=== PATIENT | female | born 1930 | race Caucasian/White ===

== ENCOUNTER → 2016-08-16 | Outpatient (CLI) | payer OTHER ==
--- NOTE | 2016-08-16 12:07 | DX ---
Left wrist series 4 views Right hand series 3 views History: Pain without trauma. Evaluate for arthritis. Findings: Left wrist: There is mild to moderate joint space narrowing with mild subluxation left first carpal m etacarpal joint. The remainder the joint spaces appear to be normal. There are no fractures or abnorm al lytic or sclerotic osseous lesions. Soft tissues are unremarkable. Right hand series: There is mild joint space narrowing at the DIP joints of the second through 5th di git as well as the first interphalangeal joint. The PIP and MCP joints appear to be relatively normal . The joint spaces about the carpal bones are also normal in appearance. No periosteal thickening is seen. Soft tissues are unremarkable. Impression: 1. Mild to moderate degenerative changes left first carpometacarpal joint compatible with mild osteoa rthritis. 2. Mild degenerative changes about the DIP joints of the right hand compatible with mild osteoarthrit is.
== END ==
LOC: BMCIMAGING 10:46
PROVIDERS: ATTEND Physician Assistant
DX: M19.032 Primary osteoarthritis, left wrist (principal); M19.041 Primary osteoarthritis, right hand

== ENCOUNTER → 2017-05-18 | Outpatient (CLI) | payer OTHER | LOC: BMCIMAGING 13:48 | PROVIDERS: ATTEND Physician Assistant | DX: S89.91XA Unspecified injury of right lower leg, initial encounter (principal); S62.616A Displaced fracture of proximal phalanx of right little finger, initial encounter for closed fracture; M17.11 Unilateral primary osteoarthritis, right knee; M19.031 Primary osteoarthritis, right wrist; M25.461 Effusion, right knee ==

== ENCOUNTER → 2019-02-10 | Outpatient (CLI) | payer OTHER | LOC: FIMAGING 14:21 ==